=== PATIENT | male | born 1985 | race African-American/Black ===

== ENCOUNTER 2017-09-06 22:52 | Emergency (ER) | payer SELFPAY ==
[~2017-09-06] VITALS: Ht 175.3 cm; Wt 136.1 kg
[~2017-09-06 22:52] MED LIST: ALBUTEROL SULF8.5 GM INH; CORTISPORIN-TC10 M1 RIGHT EAR; IBUPROFEN600 MG ORAL; NORCO 5-325 TA1 EACH ORAL; ZITHROMAX250 MG ORAL
[2017-09-07] MEDS ORDERED: IBUPROFEN600 MG ORAL (00:39)
[2017-09-07 00:45] VITALS: BP 139/91
--- NOTE | 2017-09-07 04:28 | Emergency Room Report ---
History of Present Illness General Chief Complaint: Lower Extremity Injury Source: Patient Present Illness HPI 32-year-old male presents ED complaining of left ankle pain and swelling. States that on Tuesday he tripped and fell at work. Denies hitting his head or LOC. Complaining of left ankle pain and swelling, throbbing, 8 out of 10, nonradiating. Unable to bear weight. No other aggravating relieving factors. Denies any other associated symptoms Allergies: Uncoded Allergies: SHELL FISH (Allergy, Unknown, 06/25/15) Patient History Past Medical History: asthma Past Surgical History: none Pertinent Family History: none Social History: Denies: smoking, alcohol use, drug use Immunizations: UTD Reviewed Nursing Documentation: PMH: Agreed; PSxH: Agreed Nursing Documentation-PMH Hx Asthma: Yes Review of Systems All Other Systems: negative except mentioned in HPI Physical Exam Vital Signs Date Time Temp Pulse Resp B/P (MAP) Pulse Ox O2 Delivery O2 Flow Rate FiO2 09/06/17 23:11 98.2 96 18 139/91 96 Room Air 98.2 Sp02 EP Interpretation: reviewed, normal General Appearance: no apparent distress, alert, GCS 15, non-toxic, obese Head: normocephalic Eyes: bilateral eye normal inspection, bilateral eye PERRL ENT: normal ENT inspection Neck: normal inspection Respiratory: normal inspection Cardiovascular #1: normal inspection Gastrointestinal: normal inspection Rectal: deferred Genitourinary: no CVA tenderness Musculoskeletal: tender - L ankle Neurologic: alert, oriented x3, responsive, motor strength/tone normal, sensory intact, speech normal Psychiatric: normal inspection Skin: normal inspection Lymphatic: normal inspection Procedures Splinting Splinting : Consent: Verbal Pre-Made Type: SHASHI wrap - L ankle Pre-Proc Neuro Vasc Exam: normal Post-Proc Neuro Vasc Exam: normal Patient Tolerated: Well Complications: None Medical Decision Making Diagnostic Impression: Primary Impression: Ankle sprain Qualified Codes: S93.402A - Sprain of unspecified ligament of left ankle, initial encounter ER Course Hospital Course 32-year-old M presents to ED complaining of L ankle pain s/p trip and fall Differential diagnoses include: Fracture, dislocation, sprain, contusion Clinical course Patient placed on stretcher. After initial history and physical, I ordered pain medications and Xrays of L foot/ankle Xrays prelim read shows no acute fracture/dislocation. placed in shashi wrap, given crutches Diagnosis - ankle sprain Stable and discharged to home with prescription for Motrin. apply ice, keep elevated. weight bear as tolerated. Followup with PMD. Return to ED if symptoms recur or worsen Other X-Ray Diagnostic Results Other X-Ray Diagnostic Results #1: X-Ray ordered: L ankle # of Views/Limited Vs Complete: 3 View Indication: Pain EP Interpretation: Yes Interpretation: no dislocation, no soft tissue swelling, no fractures Impression: No acute disease Electronically Signed by: Electronically signed by Jay Johnson MD Other X-Ray Diagnostic Results #2: X-Ray ordered: L foot # of Views/Limited Vs Complete: 3 View Indication: Pain EP Interpretation: Yes Interpretation: no dislocation, no soft tissue swelling, no fractures Impression: No acute disease Electronically Signed by: Electronically signed by Jay Johnson MD Last Vital Signs Date Time Temp Pulse Resp B/P (MAP) Pulse Ox O2 Delivery O2 Flow Rate FiO2 09/07/17 00:45 98.2 18 139/91 96 Room Air 98.2 09/06/17 23:11 96 Status: improved Disposition: HOME, SELF-CARE Condition: Stable Scripts Ibuprofen* (MOTRIN*) 600 Mg Tablet 600 MG ORAL Q8H PRN for For Pain, #30 TAB 0 Refills Prov: Jay Johnson MD 09/07/17 Patient Instructions: Ankle Sprain Jay Johnson MD September 07, 2017 04:28
--- NOTE | 2017-09-07 11:27 | Diagnostic Imaging Report ---
Indication: Pain Technique: XRAY Ankle Compl Min 3v L Comparison: None Findings: There is no evidence of acute fracture. Ankle mortise is intact on these nonstress views. Imaged hindfoot grossly unremarkable. No radiopaque foreign body seen. Impression: No evidence of acute fracture or dislocation.
--- NOTE | 2017-09-07 11:29 | Diagnostic Imaging Report ---
Indication: Pain Technique: XRAY Foot Complete L Comparison: None Findings: There is no evidence of acute fracture or dislocation. Alignment and joint spaces within normal limits. No focal soft tissue abnormality is appreciated. No radiopaque foreign body is seen. Impression: No evidence of acute bony or articular abnormality.
== END 2017-09-07 00:45 | disposition home or self-care (01) ==
LOC: EMR 23:25
DX: S93.402A Sprain of unspecified ligament of left ankle, initial encounter (principal); W01.0XXA Fall on same level from slipping, tripping and stumbling without subsequent striking against object, initial encounter; Y92.89 Other specified places as the place of occurrence of the external cause; J45.909 Unspecified asthma, uncomplicated; Z91.013 Allergy to seafood
CPT/HCPCS: 99284

== ENCOUNTER 2020-04-01 10:21 | Emergency (ER) | payer SELFPAY ==
[~2020-04-01] VITALS: Ht 175.3 cm; Wt 158.8 kg
[2020-04-01 10:30] VITALS: BP 140/77
--- NOTE | 2020-04-01 10:44 | Emergency Room Report ---
History of Present Illness General Chief Complaint: Asthma Source: Patient Present Illness HPI 35-year-old male presents for evaluation. States he has asthma and. States his inhaler has not been working for a few days. States he is wheezing. Denies cough. Denies fevers or chills. Denies chest pain. Denies sick contacts or recent travel. No other aggravating relieving factors. 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: No Patient History Past Medical History: asthma Past Surgical History: none Pertinent Family History: none Social History: Denies: smoking, alcohol use, drug use Immunizations: UTD Reviewed Nursing Documentation: PMH: Agreed; PSxH: Agreed Nursing Documentation-PMH Hx Asthma: Yes Review of Systems All Other Systems: negative except mentioned in HPI Physical Exam Vital Signs Date Time Temp Pulse Resp B/P (MAP) Pulse Ox O2 Delivery O2 Flow Rate FiO2 04/01/20 10:24 98.2 86 20 140/77 (98) 94 Room Air Sp02 EP Interpretation: reviewed, normal General Appearance: no apparent distress, alert, GCS 15, non-toxic, obese Head: normocephalic, atraumatic Eyes: bilateral eye normal inspection, bilateral eye PERRL ENT: hearing grossly normal, normal pharynx, no angioedema, normal voice Neck: full range of motion, supple/symm/no masses Respiratory: chest non-tender, normal breath sounds, speaking full sentences, wheezing Cardiovascular #1: regular rate, rhythm, no edema Cardiovascular #2: 2+ carotid (R), 2+ carotid (L), 2+ radial (R), 2+ radial ( L), 2+ dorsalis pedis (R), 2+ dorsalis pedis (L) Gastrointestinal: normal bowel sounds, non tender, soft, non-distended, no guarding, no rebound Rectal: deferred Genitourinary: normal inspection, no CVA tenderness Musculoskeletal: back normal, normal range of motion, gait/station normal, non-tender Neurologic: alert, motor strength/tone normal, oriented x3, sensory intact, responsive, speech normal Psychiatric: judgement/insight normal, memory normal, mood/affect normal, no suicidal/homicidal ideation Reflexes: 3+ bicep (R), 3+ bicep (L), 3+ tricep (R), 3+ tricep (L), 3+ knee (R), 3+ knee (L) Skin: no rash Lymphatic: no adenopathy Procedures Critical Care Time Critical Care Time i. I feel this is a highly complex case requiring extensive working including EKG/Rhythm strip, Xray/CT/US, Blood/urine lab work, repeat exams while in ED, and administration of strong opiates/narcotics for pain control, admission to hospital or close patient follow up. Total time: 30 min bedside evaluation and treatment excludes procedures (EKG). Reason for critical care: Asthma, respiratory distress Possible complications: hypotension, hypertension, DE, shock, arrhythmias, metabolic acidosis, end organ damage, respiratory failure. Interventions: Covid, prednisone, breathing treatment, reassessment Course: presents with shortness of breath, wheezing. History of asthma. Covid negative. Given DuoNeb breathing treatments with symptoms improved. Wheezing resolved. Consultations: nursing staff, EMS, family Performed by: Dr Johnson Tolerated well condition = serious j. because of unstable vital signs this patient had a condition that could potentially threaten life or limb. I feel this is a critical patient who required my full attention while patient was considered critical. Total Criti himanshu Care Time excluding procedures was greater than 35 minutes Medical Decision Making Diagnostic Impression: Primary Impression: Asthma exacerbation Qualified Codes: J45.901 - Unspecified asthma with (acute) exacerbation ER Course Hospital Course 35-year-old male presents with wheezing. History of asthma. Differential diagnoses include: URI, bronchitis, asthma/COPD, pneumonia Clinical course Patient placed on stretcher. After initial history, physical exam reveals a male in mild distress. Bilateral TM unremarkable. No pharyngeal erythema. No tonsillar exudates. No lymphadenopathy. He is wheezing bilaterally. Covid negative. Given breathing treatments. Prednisone. On reassessment symptoms improved. wheezing resolved. Safe for discharge with close outpatient follow-up Diagnosis - asthma exacerbation Stable and discharged home with prescriptions for prednisone, albuterol. Instructed to followup with PMD. Return to ED if symptoms recur or worsen Last Vital Signs Date Time Temp Pulse Resp B/P (MAP) Pulse Ox O2 Delivery O2 Flow Rate FiO2 04/01/20 10:30 76 20 Room Air 04/01/20 10:30 98.2 140/77 98 Status: improved Disposition: HOME, SELF-CARE Condition: Stable Scripts Prednisone* (PREDNISONE*) 20 Mg Tablet 40 MG ORAL DAILY, #10 TAB Prov: Jay Johnson MD 04/01/20 Albuterol Sulfate (VENTOLIN HFA) 18 Gm Hfa.aer.ad 2 PUFFS INH EVERY 6 HOURS, #18 GM 0 Refills Prov: Jay Johnson MD 04/01/20 Jay Johnson MD Apr 01, 2020 10:44
[2020-04-01] MEDS: Albuterol/Ipratropium 3ml neb HHN SCH (11:28)
[2020-04-01] MEDS ORDERED: VENTOLIN HFA18 GM INH (12:23)
[2020-04-01] MEDS ORDERED: PREDNISONE20 MG ORAL (12:23)
[2020-04-01 13:08] VITALS: BP 132/73
== END 2020-04-01 12:30 | disposition home or self-care (01) ==
LOC: EMR 10:46
DX: J45.901 Unspecified asthma with (acute) exacerbation (principal); Z20.828 Contact with and (suspected) exposure to other viral communicable diseases; Z91.013 Allergy to seafood
CPT/HCPCS: 99291; J7512; U0002; J7620